=== PATIENT | male | born 1955 | race Caucasian/White ===

== ENCOUNTER 2020-04-20 07:22 | Emergency (ER) | payer OTHER ==
[2020-04-20 07:59] LABS: INR 1.28 (0.9-1.2); PROTHROMBIN TIME 15.2 SECONDS (11.4-13.6); PTT 30.8 SECONDS (22.2-34.7)
[2020-04-20 08:00] LABS: BASOPHIL 0.5 % (0-2); EOSINOPHIL 0.8 % (0-5); HCT 21.5 % (42.0-52.0); LYMPHOCYTE 27.9 % (15-48); MCH 23.8 pg (25.0-31.0); MCHC 29.8 g/dL (32.0-36.0); MCV 79.9 fL (78.0-100.0); MONOCYTE 14.6 % (0-12); NEUTROPHIL 55.9 % (41-80); NRBC 0; PLT 286 K/uL (150-400); RBC 2.69 M/uL (4.70-6.00); RDW 18.4 % (11.5-14.0); WBC 8.7 K/uL (4.0-10.5)
[2020-04-20 08:07] LABS: HGB 6.4 g/dl (13.2-18.0)
[2020-04-20 08:25] LABS: LACTIC ACID 3.3 mmol/L (0.4-1.9)
[2020-04-20 08:26] LABS: CORONAVIRUS 2019 SARS-COV-2 NEGATIVE (NEGATIVE); INFLUENZA A NAA NEGATIVE (NEGATIVE)
[2020-04-20 08:27] LABS: ALBUMIN 3.4 g/dL (3.4-5.0); ALKALINE PHOSHATASE 90 U/L (46-116); ALT 25 U/L (16-63); AST 30 U/L (15-37); BILIRUBIN - TOTAL 0.3 mg/dL (0.2-1.0); BUN 10 mg/dL (7-18); BUN/CREAT RATIO (CALC) 11.8 RATIO; CHLORIDE 103 mmol/L (98-107); CO2 (BICARBONATE) 22 mmol/L (21-32); CREATININE 0.85 mg/dL (0.67-1.17); GLOBULIN (CALCULATION) 3.6 g/dL; GLUCOSE 133 mg/dL (74-106); MAGNESIUM 1.8 mg/dL (1.8-2.4); POTASSIUM 3.3 mmol/L (3.5-5.1)
[2020-04-20 10:35] LABS: BILIRUBIN NEGATIVE (NEGATIVE); BLOOD 1+ Ery/uL (NEGATIVE); CLARITY CLEAR (CLEAR); COLOR YELLOW (YELLOW); GLUCOSE (U) NORMAL (NORMAL); LEUKOCYTES NEGATIVE Leu/uL (NEGATIVE); NITRITE NEGATIVE (NEGATIVE); PROTEIN NEGATIVE (NEGATIVE); SPECIFIC GRAVITY 1.025 (1.001-1.030); UROBILINOGEN 0.2 mg/dL (0.2-1.0)
[2020-04-20 10:53] LABS: BACTERIA TRACE; MUCOUS TRACE
[2020-04-20 18:05] LABS: BASOPHIL 0.2 % (0-2); EOSINOPHIL 0.1 % (0-5); HCT 23.1 % (42.0-52.0); LYMPHOCYTE 17.2 % (15-48); MCH 24.1 pg (25.0-31.0); MCHC 30.3 g/dL (32.0-36.0); MCV 79.7 fL (78.0-100.0); MONOCYTE 14.5 % (0-12); MPV 10.1 fL (6.0-9.5); NEUTROPHIL 67.7 % (41-80); NRBC 0; PLT 258 K/uL (150-400); RDW 17.8 % (11.5-14.0); WBC 9.5 K/uL (4.0-10.5)
== END 2020-04-20 23:00 | disposition other institution (70) ==
LOC: FER 07:22
PROVIDERS: Emergency Medicine
DX: K92.2 Gastrointestinal hemorrhage, unspecified (principal); J96.01 Acute respiratory failure with hypoxia; I50.1 Left ventricular failure, unspecified; I21.A1 Myocardial infarction type 2; S72.052A Unspecified fracture of head of left femur, initial encounter for closed fracture; N32.89 Other specified disorders of bladder; J90 Pleural effusion, not elsewhere classified; I25.2 Old myocardial infarction; I25.10 Atherosclerotic heart disease of native coronary artery without angina pectoris; F17.200 Nicotine dependence, unspecified, uncomplicated; Z87.19 Personal history of other diseases of the digestive system; Z95.5 Presence of coronary angioplasty implant and graft; Z98.890 Other specified postprocedural states; Z79.02 Long term (current) use of antithrombotics/antiplatelets; X58.XXXA Exposure to other specified factors, initial encounter; Z20.822 Contact with and (suspected) exposure to COVID-19
CPT/HCPCS: 36415; 36430; 36600; 71045; 80053; 81001; 82270; 82803; 83605; 83735; 83880; 84145; 84484; 85025; 85610; 85730; 86850; 86900; 86901; 86922; 87040; 93005; 94640; 96365; 96366; 96367; 96375; 96376; C9113; G0480; J1940; J2543; J3370; J7050; P9016; U0002

== ENCOUNTER 2020-06-13 20:23 | Inpatient (IN) | payer OTHER ==
[2020-06-13 22:26] LABS: BASOPHIL 0.4 % (0-2); EOSINOPHIL 2.5 % (0-5); HCT 19.2 % (42.0-52.0); LYMPHOCYTE 38.1 % (15-48); MCH 22.7 pg (25.0-31.0); MCHC 30.2 g/dL (32.0-36.0); MONOCYTE 11.1 % (0-12); MPV 10.1 fL (6.0-9.5); NEUTROPHIL 47.5 % (41-80); NRBC 0; PLT 208 K/uL (150-400); RBC 2.56 M/uL (4.70-6.00); RDW 22.5 % (11.5-14.0); WBC 7.3 K/uL (4.0-10.5)
[2020-06-13 22:30] LABS: INR 1.54 (0.9-1.2); PROTHROMBIN TIME 17.6 SECONDS (11.4-13.6)
[2020-06-13 22:34] LABS: HGB 5.8 g/dl (13.2-18.0)
[2020-06-13 22:36] LABS: ALBUMIN 3.1 g/dL (3.4-5.0); BILIRUBIN - TOTAL 0.3 mg/dL (0.2-1.0); BUN/CREAT RATIO (CALC) 16.9 RATIO; CREATININE 0.89 mg/dL (0.67-1.17); GLOBULIN (CALCULATION) 3.5 g/dL; POTASSIUM 3.5 mmol/L (3.5-5.1); TOTAL PROTEIN 6.6 g/dL (6.4-8.2)
[2020-06-14 05:09] LABS: HCT 28.1 % (42.0-52.0); HGB 9.3 g/dL (13.2-18.0)
[2020-06-14 05:26] LABS: BUN/CREAT RATIO (CALC) 15.8 RATIO; CREATININE 0.95 mg/dL (0.67-1.17); POTASSIUM 3.9 mmol/L (3.5-5.1)
[2020-06-14 09:36] LABS: HCT 29.7 % (42.0-52.0); HGB 9.7 g/dL (13.2-18.0)
[2020-06-14] MEDS ORDERED: PROTONIX 40MG T40 MG PO (10:24)
[2020-06-14] MEDS ORDERED: TOPROL XL 25MG25 MG PO (10:25)
[2020-06-14] MEDS ORDERED: ELIQUIS5 MG PO (10:25)
[2020-06-14] MEDS ORDERED: LASIX20 MG PO (10:26)
[2020-06-14] MEDS ORDERED: LIPITOR40 MG PO (10:26)
[2020-06-14] MEDS ORDERED: PLAVIX75 M1 PO (10:26)
[2020-06-14] MEDS ORDERED: FEOSOL325 MG PO (10:27)
[2020-06-14] MEDS ORDERED: SPIRIVA 18MCG18 MCG INH (10:29)
[2020-06-14] MEDS ORDERED: DAILY VALUE1 EACH PO (10:31)
[2020-06-14] MEDS ORDERED: VICODIN 10/3251 EACH PO (10:31)
[2020-06-14] MEDS ORDERED: VITAMIN D325 MC2 PO (10:32)
[2020-06-14] MEDS ORDERED: K-DUR20 MEQ PO (10:32)
[2020-06-14] MEDS ORDERED: VITAMIN B-1100 MG PO (10:33)
[2020-06-14] MEDS ORDERED: FOLIC ACID1 MG PO (10:33)
[2020-06-14] MEDS ORDERED: OCTREOTIDE100 MCG/3 PO (10:34)
--- NOTE | 2020-06-14 13:29 | NUR ---
PT WAS PREPARING TO GO DOWN FOR EGD WITH DR WALKER WHEN DAUGHTER SAM CALLED TO REQUEST HE BE TRANSFERRED TO [facility]. ROCÍO AND DENISE BOTH SPOKE WITH PATIENTABOUT RISKS AND BENEFITS OF TRANSFERRING INSTEAD OF HAVING PROCEDURE HERE. PATIENT IS PENDING BED AT [facility]. ACCEPTING PHYSI[place] IS DR. SIEGEL.
[2020-06-14 15:19] LABS: HCT 29.3 % (42.0-52.0); HGB 9.4 g/dL (13.2-18.0)
[2020-06-14 21:09] LABS: HCT 28.5 % (42.0-52.0); HGB 9.3 g/dL (13.2-18.0)
[2020-06-15 05:47] LABS: BASOPHIL 0.5 % (0-2); EOSINOPHIL 4.3 % (0-5); HCT 28.9 % (42.0-52.0); LYMPHOCYTE 30.3 % (15-48); MCH 24.9 pg (25.0-31.0); MCHC 31.8 g/dL (32.0-36.0); MCV 78.3 fL (78.0-100.0); MONOCYTE 11.9 % (0-12); MPV 10.2 fL (6.0-9.5); NEUTROPHIL 52.8 % (41-80); NRBC 0; PLT 192 K/uL (150-400); RBC 3.69 M/uL (4.70-6.00); RDW 19.9 % (11.5-14.0); WBC 5.8 K/uL (4.0-10.5)
[2020-06-15 06:05] LABS: HGB 9.2 g/dl (13.2-18.0)
[2020-06-15 06:08] LABS: ALBUMIN 2.9 g/dL (3.4-5.0); BILIRUBIN - TOTAL 1.1 mg/dL (0.2-1.0); BUN/CREAT RATIO (CALC) 14.6 RATIO; CREATININE 0.96 mg/dL (0.67-1.17); GLOBULIN (CALCULATION) 3.7 g/dL; POTASSIUM 3.9 mmol/L (3.5-5.1); TOTAL PROTEIN 6.6 g/dL (6.4-8.2)
[2020-06-15] MEDS ORDERED: OCTREOTIDE100 MCG/3 SC ×2 (11:29→12:05)
--- NOTE | 2020-06-15 13:51 | NUR ---
1352: PT WAS GIVEN DISCHARGE INSTRUCTIONS AND IV'S REMOVED X3, ALONG WITH TELE. PT AT BEDSIDE TO ASSIST IN DRESSING TO GO HOME. PT HAD REQUESTED TO BE SENT TO [facility] UPON ADMISSION BUT NO BED WAS AVAILABLE. BED STATUS WAS CHECK AGAIN 06/15/20 AT 0800 AND TRANSFER CENTER STATED THERE IS NOT A BED OPEN. PT AND DAUGHTER WERE NOTIFIED THAT A BED WAS NOT AVAILABLE YET. PT AND DAUGHTER SPOKE WITH MD ABOUT OPTIONS SINCE THEY DID NOT WANT THE EGD SCOPE TO BE PERFORMED HERE. MD SUGGEST TO MAKE AN OUTPATIENT APPOINTMENT WITH GASTROENTERNOLOGIST AT [facility]. DAUGHTER STATED THAT SHE WOULD.
[2020-09-25] MEDS ORDERED: HYDROCODON-ACE1 EAC6 PO (11:27)
[2020-09-25] MEDS ORDERED: GABAPENTIN100 MG PO (11:27)
[2020-09-25] MEDS ORDERED: VOLTAREN ARTHRI20 GM TOP (11:27)
[2020-10-01] MEDS ORDERED: VOLTAREN ARTHRI20 GM TOP (09:48)
[2020-10-02] MEDS ORDERED: HYDROCODON-ACE1 EAC6 PO (14:03)
== END 2020-06-15 14:00 | disposition home or self-care (01) | DRG 378 ==
LOC: FER 20:23 → FTCU 06-14 08:30
PROVIDERS: Emergency Medicine Emergency Medical Services; Nurse Practitioner; Nurse Practitioner Family; ADMIT Allergy & Immunology Allergy
PROC: 30233N1 Transfusion of Nonautologous Red Blood Cells into Peripheral Vein, Percutaneous Approach (ICD-10-PCS; principal; 2020-06-14)
DX: K31.811 Angiodysplasia of stomach and duodenum with bleeding (principal); I24.8 Other forms of acute ischemic heart disease; D50.0 Iron deficiency anemia secondary to blood loss (chronic); I95.9 Hypotension, unspecified; Z20.822 Contact with and (suspected) exposure to COVID-19; I25.10 Atherosclerotic heart disease of native coronary artery without angina pectoris; K21.9 Gastro-esophageal reflux disease without esophagitis; E78.5 Hyperlipidemia, unspecified; J44.9 Chronic obstructive pulmonary disease, unspecified; K74.60 Unspecified cirrhosis of liver; I11.0 Hypertensive heart disease with heart failure; I50.9 Heart failure, unspecified; Z95.5 Presence of coronary angioplasty implant and graft; Z87.01 Personal history of pneumonia (recurrent); Z86.711 Personal history of pulmonary embolism; Z79.02 Long term (current) use of antithrombotics/antiplatelets; Z79.01 Long term (current) use of anticoagulants; Z79.899 Other long term (current) drug therapy; Z98.890 Other specified postprocedural states
CPT/HCPCS: 36415; 36430; 80048; 80053; 82150; 83690; 83880; 84484; 85014; 85018; 85025; 85610; 85730; 86850; 86900; 86901; 86922; 93005; C9113; J1940; J2354; J7030; J7120; P9016; Q9967; U0002

== ENCOUNTER 2021-09-24 05:28 | Day surgery (SDC) | payer OTHER ==
[~2021-09-24] VITALS: Ht 175 cm; Wt 77.0 kg
[~2021-09-24 05:28] MED LIST: ASPIRIN EC81 MG PO; CLOPIDOGREL75 MG PO; DAILY VALUE1 EACH PO; ELIQUIS5 MG PO; FEOSOL325 MG PO; FOLIC ACID1 MG PO; GABAPENTIN100 MG PO; HYDROCODON-ACE1 EAC6 PO; K-DUR20 MEQ PO; LASIX20 MG PO; LIPITOR40 MG PO; NEURONTIN100 M1 PO; OCTREOTIDE100 MCG/3 PO; OCTREOTIDE100 MCG/3 SC; OCUVITE EYE HE1 EACH PO; PLAVIX75 M1 PO; POTASSIUM CHLO20 ME2 PO; PROTONIX 40MG T40 MG PO; SALONPAS PATCH1 EAC1 TOP; SPIRIVA 18MCG18 MCG INH; TOPROL XL 25MG25 MG PO; VICODIN 10/3251 EACH PO; VITAMIN B-1100 MG PO; VITAMIN D325 MC2 PO; VOLTAREN ARTHRI20 GM TOP
[2021-09-25 06:08] LABS: BASOPHIL 0.1 % (0-2); EOSINOPHIL 0.1 % (0-7); HCT 41.4 % (42.0-52.0); HGB 13.6 g/dl (13.2-18.0); LYMPHOCYTE 14.9 % (15-48); MCH 30.9 pg (25.0-31.0); MCHC 32.9 g/dL (32.0-36.0); MCV 94.1 fL (78.0-100.0); MONOCYTE 9.9 % (0-12); MPV 10.6 fL (6.0-9.5); NEUTROPHIL 74.5 % (41-80); NRBC 0; PLT 129 K/uL (150-400); RDW 14.1 % (11.5-14.0); WBC 13.5 K/uL (4.0-10.5)
[2021-09-25 06:45] LABS: BUN/CREAT RATIO (CALC) 10.5 RATIO; CREATININE 0.76 mg/dL (0.67-1.17); POTASSIUM 4.5 mmol/L (3.5-5.1)
== END 2021-09-25 11:48 | disposition home or self-care (01) ==
LOC: FAS 05:28 → FOR 07:00 → FMS 07:56 → FAS 09-25 11:48
PROVIDERS: Orthopaedic Surgery
DX: M16.12 Unilateral primary osteoarthritis, left hip (principal); I10 Essential (primary) hypertension; J44.9 Chronic obstructive pulmonary disease, unspecified; E78.5 Hyperlipidemia, unspecified; I25.10 Atherosclerotic heart disease of native coronary artery without angina pectoris; Z95.1 Presence of aortocoronary bypass graft; Z79.82 Long term (current) use of aspirin; Z79.899 Other long term (current) drug therapy
CPT/HCPCS: 36415; 73501; 76000; 80048; 85025; 86850; 86900; 86901; 94010; 94640; 94760; 97110; 97162; 97166; 97530-GP; 97535; C1713; C1776; J0171; J0697; J1885; J2250; J2270; J2370; J2704; J2795; J3010; J7120